=== PATIENT | female | born 1950 | race Caucasian/White ===

== ENCOUNTER → 2019-12-06 13:14 | Outpatient (CLI) | payer MEDICARE, SELFPAY ==
--- NOTE | ~2019-12-06 | MM_ITS ---
EXAMINATION: MM screening [facility] BI w anette HISTORY: Screening TECHNIQUE: Craniocaudal and mediolateral oblique 3-D tomosynthesis images were obtained and synthetic 2-D images were generated. CAD analysis was submitted and interpreted. COMPARISON: Comparison to multiple prior studies sequentially, with oldest reviewed study dated 07/2011. BREAST PARENCHYMAL COMPOSITION: The breasts are heterogeneously dense, which may obscure small masses . FINDINGS: There is no evidence of suspicious mass, calcification, or architectural distortion to sugg est malignancy in either breast. There has been no suspicious interval change. IMPRESSION: 1. No mammographic evidence of malignancy. 2. Recommend routine screening mammography in one year. BI-RADS Category 1: Negative Reviewed, dictated and finalized at location A.
== END ==
PROVIDERS: Visit Provider Nurse Practitioner
DX: Z12.31 Encounter for screening mammogram for malignant neoplasm of breast (principal)
CPT/HCPCS: 77063; 77067

== ENCOUNTER → 2021-01-21 11:26 | Outpatient (CLI) | payer MEDICARE, SELFPAY ==
--- NOTE | ~2021-01-21 | MM_ITS ---
EXAMINATION: MM screening [facility] BI w anette HISTORY: Screening mammogram TECHNIQUE: Craniocaudal and mediolateral oblique 3-D tomosynthesis images were obtained and synthetic 2-D images were generated. Bilateral rotated lateral CC views.] Digital CAD analysis was submitted a nd interpreted. COMPARISON: 12/06/2019, 09/30/2018, 01/04/2018 bilateral screening mammogram examinations BREAST PARENCHYMAL COMPOSITION: There are scattered areas of fibroglandular density. FINDINGS: There is chronic scarring in the central upper right breast; history of prior benign right breast biopsy for calcifications in 1992. Occasional benign calcifications. There is no evidence of suspicious mass, calcification, or architectural distortion to suggest malig aron in either breast. There has been no suspicious interval change. IMPRESSION: 1. No mammographic evidence of malignancy. 2. Recommend routine screening mammography in one year. BI-RADS Category 2: Benign finding(s). Reviewed, dictated and finalized at location A. CTOR OF DISTANCE LEARNING
== END ==
PROVIDERS: Visit Provider Nurse Practitioner
DX: Z12.31 Encounter for screening mammogram for malignant neoplasm of breast (principal)
CPT/HCPCS: 77063; 77067

== ENCOUNTER 2022-02-10 09:54 | Day surgery (SDC) | payer MEDICARE, SELFPAY ==
[2022-02-05 11:09] VITALS: BMI 26.4
--- NOTE | 2022-02-05 11:35 | SUR.PREOP ---
PRE-OPERATIVE [address] [address] 1. Report to the Surgery Center Waiting Room, the entrance is the first door on the right after passing through the automatic sliding doors, at time 1000____on date_02/10/2022__. OR Time:__1130____ . - You and your visitor will be asked to self-screen and do not enter if you have any COVID symptoms. - Two visitors over, age 16 and older, are allowed.? NO children visitors are allowed at this time. - Masking is based on community transmissions levels in [facility].? When the community transmission level is HIGH, masking will be required.? Signage will be posted indicating if masking is required the day of your procedure.? 2. Patients may have clear liquids (water, carbonated beverages, clear teas, apple juice) until 3 hours prior to surgery with a maximum of 20 ounces. - No food from midnight until time of surgery. - Infants may have breast milk until 4 hours before surgery, formula 6 hours prior to surgery. - Children will be allowed to drink immediately following surgery. If applicable, please bring a bottle or sippy cup to assist with drinking. Juice, water, soda, and popsicles are readily available. For infants on formula, please bring formula the day of surgery. Pacifiers are allowed. 3. Take the following medications with a SIP of water the morning of surgery: 1. n/a 2. 3. Medications to discontinue per physician order: 1. n/a date to discontinue: 4. No make-up, nail tongan, hairspray, perfume, deodorant, or body powder the day of surgery. No jewelry (including any body piercings) or valuables the day of surgery. Please take a shower or bath the night before, or the morning of, surgery with an antibacterial soap. Wear comfortable, loose fitting clothing. Children are encouraged to wear pajamas. - Jewelry must be removed prior to entering the operating room. Rings and piercings that are not removed will be cut off. The center will not accept responsibility for valuables. Please leave all valuables, including medications, at home the day of surgery. 5. When going home after surgery, a licensed food mobile driver must drive you home. NO public transportation without another adult. We recommend someone to stay with you, no alcoholic beverages, driving or important decision making for 24 hours after surgery. For pediatric surgeries, we recommend two adults to accompany a child home. (Only one will be allowed into the building with the patient) 6. If you or anyone in your household have experienced Covid symptoms in the past week, please notify your surgeon or surgery center at phone number below for possible testing. 7. Follow any additional instructions given by your physician. Telephone instructions given to: Adela and asked if any additional questions and then verbalized understanding. Patient advised to call surgeon office or the surgery center at [phone] if any additional questions.
[2022-02-10 10:15] VITALS: BP 132/68; PULSE 77; RESP 18; TEMP 36.9; O2SAT 99; BMI 26.2
[2022-02-10] MEDS: LACTATED RINGERS 1,000 ML 150 ML IV CONT (10:29)
--- NOTE | 2022-02-10 10:59 | WPDANESEPPF ---
Anes - Initial Pre Proc Eval Procedure: Operation Date: 02/10/22 11:30 Proposed Procedures p Esophagogastroduodenoscopy - Raghav Rodriguez MD s Diagnostic Colonoscopy - Raghav Rodriguez MD Date/Time: 02/10/22 10:59 Surgeon: Raghav Rodriguez MD Pre Op Diagnosis: Gerd and Dysphagia and Diarrhea Patient Data Age: 71 Gender: F Height: 1.63 m Weight: 69.4 kg Last Vital Signs Temp 36.9 C 02/10/22 10:15 Pulse 77 02/10/22 10:15 Resp 18 02/10/22 10:15 BP 132/68 02/10/22 10:15 Pulse Ox 99 02/10/22 10:15 O2 Del Method Room Air 02/10/22 10:15 Allergies Allergy/AdvReac Type Severity Reaction Status Date / Time erythromycin base Allergy Mild Unknown Verified 02/10/22 10:16 AMOXICILLIN TRIHYDRATE Allergy Mild GI UPSET Uncoded 02/10/22 10:16 POTASSIUM CLAVULANATE Allergy Mild GI UPSET Uncoded 02/10/22 10:16 Home Medications Medication Instructions Recorded Confirmed Type L.acidoph, paracasei,B. lactis 10 1 cell PO DAILY 12/04/21 02/05/22 History billion cell capsule (Digestive Advantage Advanced Probiotic) cholecalciferol (vitamin D3) 125 125 mcg PO DAILY 12/04/21 02/05/22 History mcg (5,000 unit) tablet estradiol 10 mcg vaginal tablet 10 mcg vaginal 2XW 12/04/21 02/05/22 History (Vagifem) krill oil 350 mg-om-3 90 mg-dha 24 1 cap PO DAILY 12/04/21 02/05/22 History mg-epa 50 mg-phospholipids capsule lansoprazole 30 mg capsule,delayed 30 mg PO DAILY #30 caps 12/04/21 02/05/22 Rx release ropinirole 0.5 mg tablet 0.5 mg PO BID 12/04/21 02/05/22 History rosuvastatin 20 mg tablet 20 mg PO DAILY 12/04/21 02/05/22 History Patient hx anesthesia problems: none Family hx anesthesia problems: none Results Review: All pre-operative results and documents have been reviewed as part of the pre-operative evaluation. COUNTS INCLUDE 234 BEDS AT THE [facility] Past Medical History Medical History Cataract Colon cancer screening Dysphagia SOB (shortness of breath) Surgical History Surgical History H/O breast biopsy History of parathyroid surgery History of tonsillectomy Family History Family History Father Cancer Diabetes mellitus Hypertension Heart disease Mother Depression Sibling Cancer AA (alcohol abuse) Hypertension Heart disease Social History Social History Smoking status: Never smoker Second hand tobacco smoke exposure: No Alcohol intake: current Substance use: never Substance use type: does not use Living arrangements: with family Gender identity (if verbalized by the patient): Female Spiritual care concerns: No Anes - Eval Final PreProcedure Day of Procedure 02/10/22 10:59 Patient weight: overweight Heart: regular rate and rhythm Lungs: clear to auscultation Airway: Mallampati scale class II Neurological: alert and oriented Last oral intake: >/= 8 hours ASA classification: II Emergent: no Anesthetic plan: proceed Anesthesia type and monitoring: general GIVS and standard monitoring Results Review: All pre-operative results and documents have been reviewed as part of the pre-operative evaluation. Informed Consent: The patient's anesthetic plan and its attendant risks and benefits were discussed with the patient/family/POA. Questions were solicited and answers provided to the satisfaction of the patient/family/POA.
--- NOTE | 2022-02-10 11:15 | WPDHPUPDATE1 ---
History and Physical Update Update Date/Time: 02/10/22 11:15 History and Physical has been reviewed, including an updated exam of the patient. There are NO changes in the patient's condition. Risks, benefits, and alternatives have been discussed and questions answered. Patient agrees to proceed with procedure.
[2022-02-10] MEDS: SIMETHICONE ORAL SUSPENSION 20 MG/0.3 ML 30 ML BOTTLE 0.6 ML IRRIGATION (12:15)
[2022-02-10 12:25] VITALS: BP 114/69; PULSE 73; RESP 16; O2SAT 100
[2022-02-10 12:35] VITALS: BP 111/60; PULSE 85; RESP 15; O2SAT 99
--- NOTE | 2022-02-10 12:35 | WPDANESPN ---
Anes - Prog Note Post-Op Date/Time: 02/10/22 12:35 Cardiovascular status: normal Respiratory status: normal Airway patency: baseline Mental status: baseline Post-Op hydration status: normal Vital Signs: Last Vital Signs Temp 36.9 C 02/10/22 10:15 Pulse 73 02/10/22 12:25 Resp 16 02/10/22 12:25 BP 114/69 02/10/22 12:25 Pulse Ox 100 02/10/22 12:25 O2 Del Method Room Air 02/10/22 12:25 Pain Score (VAS): 0/10 Patient Feedback: Patient satisfied with anesthetic care.
[2022-02-10 12:45] VITALS: BP 100/69; PULSE 63; RESP 15
== END 2022-02-10 13:11 | disposition home or self-care (01) ==
PROVIDERS: PCP Family Medicine Sports Medicine; Visit Provider Internal Medicine Gastroenterology
PROC: 0DJ08ZZ Inspection of Upper Intestinal Tract, Via Natural or Artificial Opening Endoscopic (ICD-10-PCS; CPT 43235; principal; 2022-02-10 11:30)
PROC: 0DJD8ZZ Inspection of Lower Intestinal Tract, Via Natural or Artificial Opening Endoscopic (ICD-10-PCS; CPT 45378; 2022-02-10 11:30)
DX: Z12.11 Encounter for screening for malignant neoplasm of colon (principal)
CPT/HCPCS: 45378; 43450; 43239

== ENCOUNTER → 2022-05-19 10:01 | Outpatient (CLI) | payer MEDICARE, SELFPAY ==
--- NOTE | ~2022-05-19 | MM_ITS ---
EXAMINATION: MM screening [facility] BI w anette HISTORY: Screening TECHNIQUE: Craniocaudal and mediolateral oblique 3-D tomosynthesis images were obtained and synthetic 2-D images were generated. CAD analysis was submitted and interpreted. COMPARISON: Comparison to multiple prior studies sequentially, with oldest reviewed study dated 10/2012. BREAST PARENCHYMAL COMPOSITION: The breasts are heterogeneously dense, which may obscure small masses . FINDINGS: Stable architectural distortion in the right breast from previous benign biopsy. Stable eliot ign-appearing right breast calcifications in the upper outer quadrant. There is no evidence of suspic ious mass, calcification, or architectural distortion to suggest malignancy in either breast. There h as been no suspicious interval change. IMPRESSION: 1. No mammographic evidence of malignancy. 2. Recommend routine screening mammography in one year. BI-RADS Category 2: Benign finding(s). Reviewed, dictated and finalized at location A.
--- NOTE | ~2022-05-19 | DEXA_ITS ---
Bone Density Report Name: OCTAVIO ROCKWELL Age: 72 Sex: Female Ethnicity: White Date of : 1950 Indication: osteopenia; height loss; prior fracture;postmenopausal Referring Provider: Yuly*Ida Delatorre Study: Bone densitometry was performed. Exam Date: May 19, 2022 Accession number: [id number] Bone Density: Region BMD T-score Z-score Classification AP Spine (L1-L4) 0.946 -0.9 1.4 Normal Femoral Neck (Left) 0.750 -0.9 1.1 Normal Total Hip (Left) 0.834 -0.9 0.8 Normal Femoral Neck (Right) 0.703 -1.3 0.7 Osteopenia Total Hip (Right) 0.831 -0.9 0.8 Normal Total Hip Mean 0.833 -0.9 0.8 Normal World Health Organization criteria for BMD impression classify patients as: Normal (T-score at or above -1.0), Osteopenia (T-score between -1.0 and -2.5), or Osteoporosis (T-score at or below -2.5). 10-year Fracture Risk(1): Major Osteoporotic Fracture 16% Hip Fracture 2.4% Reported Risk Factors: [place] (), Neck BMD=0.703, BMI=26.4, previous fracture (1) FRAX(R) Version 3.08. Fracture probability calculated for an untreated patient. Fracture probability may be lower if the patient has received treatment. Previous Exams: Region Exam Age BMD T-score BMD Change BMD Change Date g/cm2 vs Baseline vs Previous AP Spine(L1-L4) 05/19/2022 72 0.946 -0.9 -0.053 0.028* 09/30/2018 68 0.918 -1.2 -0.081 0.032* 05/09/2016 66 0.886 -1.5 -0.113 0.018 07/01/2012 62 0.869 -1.6 -0.130 0.003 04/05/2010 60 0.865 -1.7 -0.134 -0.053* 03/15/2008 57 0.918 -1.2 -0.081 0.058* 11/07/2005 55 0.861 -1.7 -0.138 -0.138 08/29/2002 52 0.999 -0.4 Total Hip(Left) 05/19/2022 72 0.834 -0.9 -0.056 0.006 09/30/2018 68 0.827 -0.9 -0.063 -0.024 05/09/2016 66 0.851 -0.7 -0.039 0.035* 07/01/2012 62 0.816 -1.0 -0.074 -0.012 04/05/2010 60 0.828 -0.9 -0.062 -0.032* 03/15/2008 57 0.860 -0.7 -0.030 0.009 11/07/2005 55 0.851 -0.7 -0.039 -0.039 08/29/2002 52 0.890 -0.4 Total Hip(Right) 05/19/2022 72 0.831 -0.9 -0.055 -0.021 09/30/2018 68 0.852 -0.7 -0.033 0.002 05/09/2016 66 0.850 -0.8 -0.036 0.020 07/01/2012 62 0.830 -0.9 -0.055 0.003 04/05/2010 60 0.828 -0.9 -0.058 -0.061* 03/15/2008 57 0.888 -0.4 0.002 0.020 10/24
== END ==
PROVIDERS: PCP Family Medicine Sports Medicine; Visit Provider Nurse Practitioner
DX: Z12.31 Encounter for screening mammogram for malignant neoplasm of breast (principal); Z78.0 Asymptomatic menopausal state; M85.851 Other specified disorders of bone density and structure, right thigh
CPT/HCPCS: 77063; 77067; 77080

== ENCOUNTER 2023-06-10 15:17 | Outpatient (CLI) | payer MEDICARE, SELFPAY ==
--- NOTE | ~2023-06-10 | MM_ITS ---
EXAMINATION: MM screening [facility] BI w anette HISTORY: Screening TECHNIQUE: Craniocaudal and mediolateral oblique 3-D tomosynthesis images were obtained and synthetic 2-D images were generated. CAD analysis was submitted and interpreted. COMPARISON: Comparison to multiple prior studies sequentially, with oldest reviewed study dated 09/03. BREAST PARENCHYMAL COMPOSITION: There are scattered areas of fibroglandular density. FINDINGS: There is no evidence of suspicious mass, calcification, or architectural distortion to sugg est malignancy in either breast. There has been no suspicious interval change. IMPRESSION: 1. No mammographic evidence of malignancy. 2. Recommend routine screening mammography in one year. BI-RADS Category 1: Negative Reviewed, dictated and finalized at location B.
== END 2023-06-10 15:18 ==
LOC: MICIMG 15:17
PROVIDERS: PCP Nurse Practitioner; Visit Provider Nurse Practitioner
DX: Z12.31 Encounter for screening mammogram for malignant neoplasm of breast (principal)
CPT/HCPCS: 77063; 77067

== ENCOUNTER 2024-07-27 13:05 | Outpatient (CLI) | payer MEDICARE, SELFPAY ==
--- OUTSIDE RECORDS SUMMARY | 2024-07-27 13:11 | XMS_ITS | Referral Summary ---
Author Organization [facility] [address] [facility] [place] [address] Care Team Providers Care Education Trainer Name Role Phone Raghav Rodriguez MD Unavailable [phone] Debra Emery NP Unavailable Kelly Mendez MD Unavailable Vineet Madrid MD Unavailable [phone] Avinash Chao MD Primary Care Provider [phone] Encounters Date Type Department Care Team Description 07/26/2024 10:45 AM CDT Office Visit [facility] Sleep Medicine at [address] [place] [id number] Kelly Mendez MD Restless leg syndrome (Primary Dx); JANEL (obstructive sleep apnea); Hypersomnia; Iron deficiency 05/23/2024 Telephone [facility] Accountable Care Organization [address] [place] [id number] Rosalind Anderson MA Unsuccessful Phone Call 1 ([employer] AW[employer]) from Last 3 Months Allergies Active Allergy Reactions Criticality Noted Date Comments Erythromycin Nausea & Vomiting,Stomach upset Low Medications lansoprazole (PREVACID) 30 mg capsule Take 1 capsule (30 mg total) by mouth daily 2 Active cholecalciferol (VITAMIN D-3) 5,000 unit capsule Take 1 capsule (5,000 Units total) by mouth daily Active krill oil 500 mg capsule Take 1 capsule by mouth daily Active Lactobacillus acidophilus 10 billion cell capsule Take 1 capsule by mouth daily Active ferrous sulfate 325 mg (65 mg of elemental iron) tabletIndication s:Iron Deficiency Anemia Take 1 tablet (325 mg total) by mouth daily with breakfast Active tretinoin (RETIN-A) 0.05 % cream Apply 0.5 application topically nightly 3 Active rOPINIRole (REQUIP) 1 mg tabletIndication s:Restless leg syndrome Take 1 tablet (1 mg total) by mouth nightly as needed (restless leg syndrom) 90 tablet 1 3 Active estradioL (ESTRACE) 0.01 % (0.1 mg/gram) vaginal cream 4 Active tiZANidine (ZANAFLEX) 2 mg tabletIndication s:Cervical radiculopathy,Ar m paresthesia, right Take 1 tablet (2 mg total) by mouth every 8 (eight) hours as needed for muscle spasms 30 tablet 4 Active rosuvastatin (CRESTOR) 20 mg tablet TAKE 1 TABLET BY MOUTH EVERY DAY 90 tablet 3 4 Active famotidine (PEPCID) 20 mg tablet Take 1 tablet (20 mg total) by mouth nightly 4 Active Mounjaro 5 mg/0.5 mL pen injector injection Inject 0.5 mL (5 mg total) under the skin once a week 5 Active Active Problems Problem Noted Date Diagnosed Date JANEL (obstructive sleep apnea) 02/18/2022 Pulmonary hypertension 01/21/2022 Family history of premature CAD 11/21/2021 Palpitations 11/21/2021 High cholesterol 09/17/2021 Prediabetes 09/17/2021 Vitamin D deficiency 09/17/2021 Restless leg 09/17/2021 Gastroesophageal reflux disease without esophagi tis 09/17/2021 History of hyperparathyroidism 12/08/2014 Overview (09/17/2021): S/p parathyroidectomy Resolved Problems Problem Noted Date Diagnosed Date Resolved Date BARRERA (dyspnea on exertion) 11/21/2021 Chest pressure 11/21/2021 01/21/2022 Positive cardiac stress test 11/12/2021 01/21/2022 Immunizations Immunization Administration Dates Next Due Influenza, Quad, Adjuvantate d, Intramuscular 11/28/2019 Influenza, Quadrivalent, Hig h Dose, Preservative Free, Intrr 12/02/2022,11/29/2021,10/08/2020 Influenza, Unspecified 12/02/2022 Pfizer SARS-CoV-2 Monovalent Vaccination (12+ Yrs) PURPLE 12/02/2020,04/23/2020,03/31/2020 Pfizer Sars-Cov-2 Bivalent V accination (12+ YRS) 12/02/2022 Pneumococcal Conjugate PCV 13 12/01/2019 RSV, Bivalent, Protein Subun it Rsvpref, Diluent (Abrysvo) 12/11/2022 ZOSTER Recombinant 02/21/2019 Social History Tobacco Use Types Packs/Day Years Used Date Smoking Tobacco: Former Cigarettes 0.5 2 0 06/12/1970 - 07/23/1971 Smokeless Tobacco: Never Tobacco Cessation:Counseling Given: Not Answered Comments:Smoked for a few years in college. Quit upon leaving and never used again AUDIT-C Answer Date Recorded Q1: How often do you have a drink containing alc ohol? 2-3 times a week 08/19/2022 Q2: How many drinks containi ng alcohol do you have on a typical day when you are drinking? 1 or 2 08/19/2022 Q3: How often do you have si x or more drinks on one occasion? 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 Gender Identity Not on file Sexual Orientation Not on file Last Filed Vital Signs Vital Sign Reading Time Taken Comments Blood Pressure 111/65 07/26/2024 10:54 AM CDT Pulse 61 07/26/2024 10:54 AM CDT Temperature 37.1 C (98.8 F) 06/01/2023 9:48 AM CDT Respiratory Rate 16 06/01/2023 9:48 AM CDT Oxygen Saturation 98% 07/26/2024 10:54 AM CDT Inhaled Oxygen Concentration - - Weight 65.3 kg (144 lb) 07/26/2024 10:54 AM CDT Height 162.6 cm (5' 4) 07/26/2024 10:54 AM CDT Body Mass Index 24.72 07/26/2024 10:54 AM CDT Plan of Treatment Not on file Medical Devices Implanted Type Area Workers Compensation Coordinator Device Identifier Shelf Expiration Date Model / Serial / Lot Table8 Angio-Seal Vip 6fr Closere Device [id number] - [id number] Implanted:Qty: 1 on 12/10/2021 by Manny Washington MD at [facility] Table8 09/22/2022 [id number] / / [id number] Procedures Procedure Name Priority Date/Time Associated Diagnosis Comments DEXA SCAN Routine 05/19/2022 MAMMOGRAPHY Routine 05/19/2022 COLONOSCOPY Routine 02/10/2022 HEPATITIS C SCREENING Routine 06/07/2018 from Last 3 Months or Most Recently Relevant to Health Maintenance Results * DEXA SCAN (05/19/2022) [facility] Provider HEALTH MAINTENANCE Final Result * MAMMOGRAPHY (05/19/2022) [facility] Provider HEALTH MAINTENANCE Final Result * COLONOSCOPY (02/10/2022) [facility] Provider HEALTH MAINTENANCE Final Result * HEPATITIS C SCREENING (06/07/2018) SCRIBED HCV ab nob-reacti ve Comment:records from prior P CP 06/07/2018 [facility] Provider HEALTH MAINTENANCE Final Result from Last 3 Months or Most Recently Relevant to Health Maintenance Insurance [employer] MEDICARE UHC MEDICARE ADVANTAGE [employer] MEDICARE Advance Directives For more information, please contact: [phone] * Full Code (Latest Code Status on File) Date Activated Date Inactivated Comments 12/10/2021 11:01 AM 12/10/2021 5:15 PM Care Teams Education Trainer Relationship Specialty Start Date End Date Avinash Chao MD [address] [place] [place] [address] PCP - General Family Medicine 09/17/23 Raghav Rodriguez MD [address] [facility] [address] [place] [address] Referring Physician Gastroenterology 08/19/22 Debra Emery, MEDICAL RECORDS AUDITOR [address] [facility] [address] [place] [address] Nurse Practitioner Nurse Practitioner 08/19/22 Kelly Mendez MD [address] [place] [address] [address] [place] [id number] Consulting Physician Sleep Medicine 08/19/22 Vineet Madrid MD [address] [address] Consulting Physician Cardiology 08/19/22
--- OUTSIDE RECORDS SUMMARY | 2024-07-27 13:11 | XMS_ITS | Clinical Summary ---
Author Organization [facility] Address [address] [place] [address] Phone Care Team Providers Care Tanning Salon Attendant Name Role Phone Avinash Chao MD Primary Care Provider [phone] Allergies Active Allergy Reactions Criticality Noted Date Comments Amoxicillin-Pot Clavulanate Nausea and Vomiting Low 05/10/2012 Erythromycin Nausea and Vomiting, Other (See Comments) Low 05/26/2015 Medications ERGOCALCIFEROL, VITAMIN D2, (VITAMIN D ORAL) Take by mouth. Activ e Sodium,Potassiu m,&Mag Sulfates (SUPREP) 17.5-3.13-1.6 gram Oral SolR Take 2 Bottles by mouth see administration instructions. DO NOT FOLLOW INSTR ON BOX, FOLLOW INSTR GIVEN BY DR'S OFFICE 354 mL 0 07/06/19 13 Active Sodium,Potassiu m,&Mag Sulfates (SUPREP) 17.5-3.13-1.6 gram Oral SolR Take 2 Bottles by mouth see administration instructions. DO NOT FOLLOW INSTR ON BOX, FOLLOW INSTR GIVEN BY DR'S OFFICE 354 mL 0 08/05/19 13 Active lansoprazole (PREVACID) 30 mg Capsule, Delayed Release(E.C.) Take 30 mg by mouth daily. Active Lactobacillus acidophilus 10 billion cell Capsule Take 1 Capsule by mouth daily. Active famotidine (PEPCID) 20 mg tablet Take 20 mg by mouth daily at bedtime. Active cholecalciferol , Vitamin D3, 125 mcg (5,000 unit) Capsule Take 5,000 Units by mouth daily. Active ferrous sulfate 325 mg (65 mg iron) tablet Take 325 mg by mouth daily with breakfast. Active krill oil 500 mg Capsule Take 1 Capsule by mouth daily. Active melatonin 10 mg Tablet Take 10 mg by mouth daily. Active rosuvastatin (CRESTOR) 20 mg tablet Take 1 Tablet by mouth daily. 08/14/19 24 Active rOPINIRole (REQUIP) 1 mg tablet Take 1 mg by mouth 3 times daily. 02/19/20 23 Active tiZANidine (ZANAFLEX) 2 mg Tablet Take 2 mg by mouth every 8 hours. 06/01/19 24 Active tretinoin (RETIN-A) 0.05 % Cream Apply 0.5 Applications to affected area daily at bedtime. 05/21/19 23 Active Active Problems Problem Noted Date Diagnosed Date JANEL (obstructive sleep apnea) 02/18/2022 Pulmonary hypertension 01/21/2022 Palpitations 11/21/2021 Family history of premature CAD 11/21/2021 Prediabetes 09/17/2021 Vitamin D deficiency 09/17/2021 Restless leg 09/17/2021 High cholesterol 09/17/2021 Gastroesophageal reflux disease without esophagi tis 09/17/2021 History of hyperparathyroidism 12/08/2014 Overview (11/10/2023): S/p parathyroidectomy Resolved Problems Problem Noted Date Diagnosed Date Resolved Date Anal skin tag 07/05/2012 11/10/2023 Anal itch 05/10/2012 11/10/2023 Encounters Date Type Department Care Team Description 07/13/2024 External Device Data STL ABSTRACTION Provider, Abstract 07/12/2024 External Device Data ST[facility] ABSTRACTION Provider, Abstract 05/11/2024 External Device Data ST[facility] ABSTRACTION Provider, Abstract 04/30/2024 External Device Data [facility] ABSTRACTION Provider, Abstract 04/29/2024 External Device Data STL ABSTRACTION Provider, Abstract 04/27/2024 External Device Data STL ABSTRACTION Provider, Abstract from Last 3 Months Family History Medical History Relation Name Comments Hypertension Brother Kun Eli Diabetes Father Reinaldo Eli Heart Disease Father Reinaldo Eli Hypertension Father Reinaldo Eli Stroke Maternal Grandmother Uzma Ferrell Cataract Mother Chrystal Eli Breast Cancer Paternal Grandmother Colon Cancer Neg Hx Ovarian Cancer Neg Hx Relation Name Status Comments Brother Kun Eli Father Reinaldo Eli Maternal Grandmother Uzma Ferrell Mother Chrystal Eli Paternal Grandmother Social History Tobacco Use Types Packs/Day Years Used Date Smoking Tobacco: Former Cigarettes 1 1 Q uit: 03/03/1971 Tobacco Cessation:Counseling Given: Not Answered Alcohol Use Standard Drinks/Week Comments Not Asked 0 (1 standard drink = 0.6 oz pur e alcohol) Comments Unknown Sex and Gender Information Value Date Recorded Sex Assigned at Female 11/09/2023 10:09 PM CDT 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 Gender Identity Female 11/09/2023 10:09 PM CDT Sexual Orientation Straight 11/09/2023 10 :09 PM CDT Occupation Industry Job Start Date Job End Date Not on file Not on file Not on file Not on file Last Filed Vital Signs Vital Sign Reading Time Taken Comments Blood Pressure 117/69 08/20/2012 1:23 PM CDT Pulse 78 08/20/2012 1:23 PM CDT Temperature - - Respiratory Rate 16 08/20/2012 1:23 PM CDT Oxygen Saturation - - Inhaled Oxygen Concentration - - Weight 62.6 kg (138 lb) 08/20/2012 1:23 PM CDT Height 165.1 cm (5' 5) 08/20/2012 1:23 PM CDT Body Mass Index 22.96 08/20/2012 1:23 PM CDT Plan of Treatment Health Maintenance Due Date Last Done Comments DTAP/TDAP/TD VACCINES (1 - Tdap) 1968 COLORECTAL SCREENING 1994 Colorectal Cancer Screening 1994 FIT-DNA Q 3 years 1994 FIT/FOBT Q 1 year 1994 Flex Sig/CT Colonography Q 5 years 1994 OSTEOPOROSIS SCREENING 2014 ZOSTER VACCINE (2 of 2) 04/18/2019 02/21/2019 PNEUMOCOCCAL VACCINE 50+ YEA RS (2 of 2 - PPSV23) 11/30/2020 12/01/2019 INFLUENZA VACCINE (#1) 2023 , 11/29/2021, 10/08/2020, Additional history exists COVID-19 Vaccine (5 - 2023-2 5 season) 2023 12/02/2022, 12/02/2020, 04/23/2020, Additional history exists RSV VACCINE (60+ or ) (1 - 1-dose 75+ series) 2024 Insurance [employer] PPO MCR Care Teams Tanning Salon Attendant Relationship Specialty Start Date End Date Avinash Chao MD [address] [place] [address] PCP - General Family Practice 05/10/12
--- OUTSIDE RECORDS SUMMARY | 2024-07-27 13:11 | XMS_ITS | Clinical Summary ---
Author Organization [facility] [place] [address] [facility] [place] [address] Care Team Providers Care Inner Layer Scrubber Tender Name Role Phone Raghav Rodriguez MD Unavailable [phone] Debra Emery NP Unavailable Kelly Mendez MD Unavailable Vineet Madrid MD Unavailable [phone] Avinash Chao MD Primary Care Provider [phone] Allergies Active Allergy Reactions Criticality Noted Date [...] 01/21/2022 Positive cardiac stress test 11/12/2021 01/21/2022 Encounters Date Type Department Care Team Description 07/26/2024 10:45 AM CDT Office Visit [facility] Sleep Medicine at [address] [place] [id number] Kelly Mendez MD Restless leg syndrome (Primary Dx); JANEL (obstructive sleep apnea); Hypersomnia; Iron deficiency 05/23/2024 Telephone [facility] Organization [address] [place] [id number] Rosalind Anderson MA Unsuccessful Phone Call 1 ([employer] AWV) from Last 3 Months Immunizations Immunization Administration Dates Next Due Influenza, Quad, Adjuvantate d, Intramuscular 11/28/2019 Influenza, Quadrivalent, Hig h Dose, Preservative Free, Intrr 12/02/2022,11/29/2021,10/08/2020 Influenza, Unspecified 12/02/2022 Pfizer SARS-CoV-2 Monovalent Vaccination (12+ Yrs) PURPLE 12/02/2020,04/23/2020,03/31/2020 Pfizer Sars-Cov-2 Bivalent V accination (12+ YRS) 12/02/2022 Pneumococcal Conjugate PCV 13 12/01/2019 RSV, Bivalent, Protein Subun it Rsvpref, Diluent (Abrysvo) 12/11/2022 ZOSTER Recombinant 02/21/2019 Surgical History Surgery Date Site/Laterality Comments PARATHYROIDECTOMY TONSILLECTOMY CATARACT EXTRACTION Bilateral BREAST BIOPSY Right benign COSMETIC SURGERY 1992 Medical History Medical History Date Comments Hyperparathyroidism s/p parathyr oidectomy High cholesterol GERD (gastroesophageal reflux disease) Restless legs Prediabetes Motion sickness Shortness of breath Abnormal stress test Palpitations Anemia Anxiety [place] (hard of hearing) Arthritis 2018 JANEL (obstructive sleep apnea) 02/18/2022 Cataract 02/12 Family History Medical History Relation Name Comments Atrial fibrillation Brother 1 Nicholas Eli broth er Bipolar disorder Brother 1 Nicholas Eli brother Coronary artery disease Brother 1 Nicholas Alcira b rother Diabetes Brother 1 Nicholas Eli brother Atrial fibrillation Brother 2 Coronary artery disease Brother 2 Diabetes Brother 3 Jose R Kijean pierreey Heart attack Brother 3 Jose R Kibbey Heart disease Brother 3 Jose R [place] Heart attack Brother 4 Nicholas Eli Heart disease Brother 4 Nicholas Eli Diabetes Father Reinaldo Eli Hearing loss Father Reinaldo Eli Heart disease Father Reinaldo Eli Hyperlipidemia Father Reinaldo Eli Hypertension Father Reinaldo Eli Vision loss Father Reinaldo Eli Arthritis Maternal Grandmother Uzma Ferrell Breast cancer Maternal Grandmother Uzma Ferrell Stroke Maternal Grandmother Uzma Ferrell Alzheimer's disease Mother Chrystal Eli Arthritis Mother Chrystal Eli Dementia Mother Chrystal Eli Hearing loss Mother Chrystal Eli Memory loss Mother Chrystal Eli Coronary artery disease Paternal Grandfather Colon cancer Neg Hx Relation Name Status Comments Brother 1 Nicholas Eli brother Alive Brother 2 Alive Brother 3 Jose R Cesarjean pierreey Brother 4 Nicholas Eli Father Reinaldo Eli Maternal Grandmother Uzma Ferrell Mother Chrystal Eli Paternal Grandfather Social History Tobacco Use Types Packs/Day Years [...] on file 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 Gender Identity Not on file Sexual Orientation Not on file Obstetrics History Last Filed Vital Signs Vital Sign Reading [...] 07/26/2024 10:54 AM CDT Plan of Treatment Health Maintenance Due Date Last Done Comments DTaP/Tdap/Td Vaccine (1 - Tdap) 1960 Hepatitis B Screening 1967 Zoster Vaccine (2 of 2) 04/18/2019 02/21/2019 Pneumococcal vaccine 65+ (2 of 2 - PPSV23) 11/30/2020 12/01/2019 Well Visit 65+ 08/20/2023 08/19/2022 Covid-19 Vaccine (6 - 4- 5 season) 2023 12/02/2022, 12/02/2022, 11/19/2021, Additional history exists Osteoporosis Screening-Bone Density Scan 05/19/2024 05/19/2022 Depression Screening 05/31/2024 06/01/2023, 08/19/2022, 09/17/2021 Fall Risk Assessment 05/31/2024 06/01/2023, 08/19/2022, 12/10/2021, Additional history exists Influenza Vaccine (Season Ended) 2024 12/02/2022, 12/02/2022, 11/29/2021, Additional history exists Colon Cancer Screening-Colonoscopy 02/11/2032 02/10/2022, 02/10/2022 Hepatitis C Screening Completed 06/07/2018 Colon Cancer Screening-DNA Stool Discontinued 02/11/20 22, 06/28/2019 Breast Cancer Screening-Mammogram Discontinued 023, 01/21/2021 Medical Devices Implanted Type Area Front Desk Agent Device Identifier Shelf Expiration Date Model / Serial / Lot [employer] Angio-Seal Vip 6fr Closere Device [id number] - [id number] Implanted:Qty: 1 on 12/10/2021 by Manny Washington MD at [facility] [employer] 09/22/2022 [id number] / / [id number] Procedures Procedure Name Priority Date/Time Associated Diagnosis Comments DEXA SCAN Routine 05/19/2022 MAMMOGRAPHY Routine 05/19/2022 HM COLONOSCOPY Routine 02/10/2022 HEPATITIS C SCREENING Routine 06/07/2018 from Last 3 Months or Most Recently Relevant to Health Maintenance Results * DEXA SCAN (05/19/2022) us Historical Provider HEALTH MAINTENANCE Final Result * MAMMOGRAPHY (05/19/2022) us Historical Provider HEALTH MAINTENANCE Final Result * COLONOSCOPY (02/10/2022) us Historical Provider HEALTH MAINTENANCE Final Result * HEPATITIS C SCREENING (06/07/2018) SCRIBED HCV ab nob-reacti ve Comment:records from prior P CP 06/07/2018 Historical Provider HEALTH MAINTENANCE Final Result from Last 3 Months or Most Recently Relevant to Health Maintenance Insurance AETNA MEDICARE UHC MEDICARE ADVANTAGE [facility] MED[facility] Address: [address] [address] [place] [address] A[employer] MEDICARE Advance Directives For more information, please contact: [phone] * Full Code (Latest Code Status on File) Date Activated Date Inactivated Comments 12/10/2021 11:01 AM 12/10/2021 5:15 PM Care Teams Inner Layer Scrubber Tender Relationship Specialty Start Date End Date Avinash Chao MD [address] [place] [address] PCP - General Family Medicine 09/17/23 Raghav Rodriguez MD [address] [facility] [address] [place], [place] [id number] Referring Physician Gastroenterology 08/19/22 Debra Emery, SALESFORCE DEVELOPER [address] [place] [address] Nurse Practitioner Nurse Practitioner 08/19/22 Kelly Mendez MD [address] [place] [address] [address] [place] [address] Consulting Physician Sleep Medicine 08/19/22 Vineet Madrid MD [address] [facility] [address] [place] [address] Consulting Physician Cardiology 08/19/22
--- OUTSIDE RECORDS SUMMARY | 2024-07-27 13:11 | XMS_ITS | Encounter Summary ---
Author Organization [facility] Healthcare Address [address] [place] [address] Care Team Providers Care Foot Piece Assembler Name Role Phone Raghav Rodriguez MD Unavailable [phone] Debra Emery NP Unavailable Kelly Mendez MD Unavailable Vineet Madrid MD Unavailable [phone] Avinash Chao MD Primary Care Provider Reason for Visit * Consultation (Routine) - Authorized Specialty Diagnoses / Procedures Referred By Contkapil t Referred To Contact Sleep Medicine Diagnoses JANEL (obstructive sleep apnea) Avinash Chao MD [address] [place] [address] [place] [address] Phone: tel: fax: Kelly Mendez MD [address] [place] [address] [address] [place] [id number] Phone: tel: Referral ID Status Reason Start Date Expiration Date Visits Requested Visits Authorized [id number] Authorized Specialty Services Required 07/22/2024 08/21/2025 4 4 Encounter Details Date Type Department Care Team (Late st Contact Info) Description 07/26/2024 10:45 AM CDT Office Visit [facility] Sleep Medicine at [address] [place] [id number] Kelly Mendez MD [address] [place] [address] [address] [place] [id number] Restless leg syndrome (Primary Dx); JANEL (obstructive sleep apnea); Hypersomnia; Iron deficiency Social History Tobacco Use Types Packs/Day Years [...] on file 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 Gender Identity Not on file Sexual Orientation Not on file documented as of this encounter Last Filed Vital Signs Vital Sign Reading Time Taken Comments Blood Pressure 111/65 07/26/2024 10:54 AM CDT Pulse 61 07/26/2024 10:54 AM CDT Temperature - - Respiratory Rate - - Oxygen Saturation 98% 07/26/2024 10:54 AM CDT Inhaled Oxygen Concentration - - Weight 65.3 kg (144 lb) 07/26/2024 10:54 AM CDT Height 162.6 cm (5' 4) 07/26/2024 10:54 AM CDT Body Mass Index 24.72 07/26/2024 10:54 AM CDT documented in this encounter Progress Notes * Kelly Mendez MD - 07/26/2024 10:45 AM CDT Images from the original note were not included. SUBJECTIVE Chief Complaints: Snoring, unrefreshing sleep, excessive daytime sleepiness HPI: Nellie Allison is a 74 y.o. female with past medical history significant for gastroesophageal reflux disease, pulmonary hypertension, prediabetes, hypercholesterolemia was seen in the sleep medicine clinic for follow-up on obstructive sleep apnea. Obstructive sleep apnea: Patient is on auto CPAP. She has been using it every night and keeps it on throughout the night. Noissues with the mask or the machine. She sometimes struggles with moisture on the mask or the hose.Patient has added a hose cover. Patient sleeps better with the device on and also feels well rested. She goes to bed at 10:00 p.m., falls asleep in 10 minutes and wakes up at 7:00 a.m.. Patient wakes up once or twice during the night and denies any waking up due to restless sleep. History: Patient gives history of many years of snoring and unrefreshing sleep. Patient feels sleepy and tired during the day. Denies falling asleep while talking or eating or driving. Denies any motor vehicle accidents or near misses. Patient also complains of morning headaches at times. Denies any witnessed apneas or waking up gasping or choking for air. No sleep study done in the past. Positive family history of obstructive sleep apnea in her brother. Mask: Nasal mask DME: [facility] Restless legs: Symptoms well controlled on ropinirole 0.5 mg-2 tablets that she takes it around 7:00 p.m.. History: Patient gives history of creepy or crawling sensation in her bilateral legs at around 8-9 p.m. whenshe is resting. Patient has been taking 2 tablets of ropinirole 0.5 mg tablets for the past 2-3 years. Patient states the sometimes she takes 3 tablets. Patient states that the symptoms have been well controlled with ropinirole. Patient also takes iron supplement every other day or so, 3 times a week. Sleep schedule: At initial visit: On all days, patient goes to bed at 11:00 p.m., falls asleep in 15-30 minutes and wakes up at 7-8 a.m.. Patient wakes up once to use the restroom and is able to go back to sleep in 15- 30 minutes. Denies any naps. Denies any hypnogogic or hypnopompic hallunications. Denies any sleep paralysis. Denies any cataplexy. Denies any daytime naps. Denies any sleepwalking. Denies any sleeptalking. Denies any nightmares. Denies any motor activities, kicking, acting out dreams, falls, or screaming during sleep. ESS: 14 (At initial presentation 14) Past Medical History: Diagnosis Date Abnormal stress test Anemia Anxiety Arthritis 2019 Cataract 02/12 GERD (gastroesophageal reflux disease) High cholesterol [place] (hard of hearing) Hyperparathyroidism s/p parathyroidectomy Motion sickness JANEL (obstructive sleep apnea) 02/18/2022 Palpitations Prediabetes Restless legs Shortness of breath Past Surgical History: Procedure Laterality Date BREAST BIOPSY Right benign CATARACT EXTRACTION Bilateral COSMETIC SURGERY 1992 PARATHYROIDECTOMY TONSILLECTOMY Current Outpatient Medications: cholecalciferol, 5,000 Units, oral, Daily estradioL, famotidine, 20 mg, oral, Nightly ferrous sulfate, 65 mg of elemental iron, oral, Daily with breakfast krill oil, 1 capsule, oral, Daily Lactobacillus acidophilus, 1 capsule, oral, Daily lansoprazole, 1 capsule, oral, Daily Mounjaro, 5 mg, subcutaneous, Weekly rOPINIRole, 1 mg, oral, Nightly PRN rosuvastatin, TAKE 1 TABLET BY MOUTH EVERY DAY tiZANidine, 2 mg, oral, Q8H PRN tretinoin, 0.5 application (deactivated), topical, Nightly Allergies Allergen Reactions Erythromycin Nausea & Vomiting and Stomach upset Social History Tobacco Use Smoking status: Former Current packs/day: 0.00 Average packs/day: 0.5 packs/day for 2.0 years (1.0 ttl pk-yrs) Types: Cigarettes Start date: 06/12/1970 Quit date: 07/23/1971 Years since quittin.0 Smokeless tobacco: Never Tobacco comments: Smoked for a few years in college. 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 Family History Problem Relation Age of Onset Dementia Mother Alzheimer's disease Mother Arthritis Mother Hearing loss Mother Memory loss Mother Heart disease Father Hyperlipidemia Father Hypertension Father Diabetes Father Hearing loss Father Vision loss Father Coronary artery disease Brother Bipolar disorder Brother Diabetes Brother Atrial fibrillation Brother Coronary artery disease Brother Atrial fibrillation Brother Stroke Maternal Grandmother Breast cancer Maternal Grandmother Arthritis Maternal Grandmother Coronary artery disease Paternal Grandfather Heart attack Brother Heart disease Brother Diabetes Brother Heart attack Brother Heart disease Brother Colon cancer Neg Hx Physical Exam: Vitals: 07/26/24 1054 BP: 111/65 Pulse: 61 SpO2: 98% Weight: 65.3 kg (144 lb) Height: 162.6 cm (5' 4) BMI: Body mass index is 24.72 kg/m??. Wt Readings from Last 6 Encounters: 07/26/24 65.3 kg (144 lb) 01/18/24 69.7 kg (153 lb 9.6 oz) 09/17/23 71.2 kg (157 lb) 07/06/23 70.6 kg (155 lb 9.6 oz) 06/01/23 71 kg (156 lb 9.6 oz) 03/31/23 68.9 kg (152 lb) BMI Readings from Last 6 Encounters: 07/26/24 24.72 kg/m?? 01/18/24 26.35 kg/m?? 09/17/23 26.95 kg/m?? 07/06/23 26.71 kg/m?? 06/01/23 26.88 kg/m?? 03/31/23 26.09 kg/m?? Physical Exam General appearance: Alert, oriented, in no distress. HEENT: Atraumatic, normocephalic. Pupils are equal and reactive to light. Extraocular movement intact. Mallampati-IV. Neck circumference-14 in. Neuro: No focal deficits Psychiatric: Normal mood and affect Polysomnogram results: Home sleep apnea testing from 01/2022: RY at 17.7, supine RY at 27.7, nonsupine RY at 0.0 CPAP titration from 01/2023: Partial alleviation at 7 cm of water, auto CPAP 7- 12 cm of water recommended. Data download: Please see scanned data Ejection fraction: Echo from 11/2021: 65%, RVSP of 39 mmHg Assessment and Plan: Moderate obstructive sleep apnea: Home sleep apnea testing showed moderate obstructive sleep apnea, which was worse during supine sleep. Patient returned the device after using only for few days in the past. Patient was unable to tolerate the device due to claustrophobia. Patient initially thought about inspire therapy, but is no longer interested in it. So titration study was obtained on 01/2022. Currently on auto CPAP at 7-12 cm of water based on titration study. Download reviewed, excellent compliance, days with device usage is 100%, days with usage >= 4 hours is 100%, average usage (days used) is 6 hours 54 minutes, well controlled with residual AHI of 0.7 per hour. Continue auto CPAP at the same settings. The physiology of sleep disordered breathing and its increased association with hypertension, diabetes mellitus type 2, arrhythmias, strokes, heart attacks, heart failure, hypersomnia, obesity, cognitive dysfunction, and mood disorders were discussed. Hypnotics, sedatives, and related medications have the potential of worsening the apnea and should be avoided. Patients with sleep apnea may have significant daytime hypersomnolence. If that is the case, driving or handling heavy machinery should be avoided until the apnea and excessive sleepiness have resolved. Weight loss for ideal body weight range is recommended. Hypersomnia: Likely secondary to sleep fragmentation associated with uncontrolled sleep disordered breathing. Improved with auto CPAP use. No driving if sleepy. History of being overweight: Patient has lost 9 lb since last visit. Restless leg syndrome: Symptoms suggestive of restless leg syndrome. Well controlled on ropinirole 0.5 mg, 2 tablets at around 7:00 p.m.. Will obtain ferritin level. Patient is on iron supplement 3 times a week. Return to clinic in 6 months. Voice recognition software [employer] was used dictate and transcribe this document. Data Collection Technician variances may occur. Despite proofreading, typographical errors may occur. Kelly Mendez MD [facility] Sleep Medicine CC: Avinash Chao MD documented in this encounter Plan of Treatment Scheduled Orders Name Type Priority Associated Diagnoses Orde r Schedule Ferritin Lab Routine Restless leg syndrome Iron deficiency Expected: 07/29/2024, Expires: 07/26/2025 documented as of this encounter Visit Diagnoses Diagnosis Restless leg syndrome- Primary Restless legs syndrome (RLS) JANEL (obstructive sleep apnea) Obstructive sleep apnea (adult) (pediatric) Hypersomnia Hypersomnia, unspecified Iron deficiency Disorders of iron metabolism documented in this encounter Historical Medications * This list may reflect changes made after this encounter. Mounjaro 5 mg/0.5 mL pen injector injection Inject 0.5 mL (5 mg total) under the skin once a week 06/28/2024 added in this encounter Care Teams Foot Piece Assembler Relationship Specialty Start Date End Date Avinash Chao MD [address] [place] [place] [address] PCP - General Family Medicine 09/17/23 Raghav Rodriguez MD [address] [facility] [address] [place] [address] Referring Physician Gastroenterology 08/19/22 Debra Emery, GARMENT SEWER HAND [address] [place] [address] Nurse Practitioner Nurse Practitioner 08/19/22 Kelly Mendez MD [address] [place] [address] [address] [place] [address] Consulting Physician Sleep Medicine 08/19/22 Vineet Madrid MD [address] [address] Consulting Physician Cardiology 08/19/22 documented as of this encounter
--- NOTE | 2024-07-27 13:30 | NEURO_ITS ---
Impression: # Complains of numbness of right hand. ? # Mild right Carpal Tunnel Syndrome. ? # No ulnar neuropathy. ? # Normal needle/EMG exam. Nerve Conduction Studies Anti Sensory Summary Table ?Stim Site NR Peak (ms) P-T Amp (?V) Site1 Site2 Delta-P (ms) Dist (cm) Yong (m/s) Right Median Anti Sensory (2-3nd Digit) Wrist ? 3.8 34.6 Wrist 2-3nd Digit 3.8 14.0 37 Wrist ? 3.8 55.0 Wrist 2-3nd Digit 3.8 14.0 37 Right Radial Anti Sensory (Base 1st Digit) Wrist ? 2.6 14.0 Wrist Base 1st Digit 2.6 0.0 Right Ulnar Anti Sensory (5th Digit) Wrist ? 2.7 25.8 Wrist 5th Digit 2.7 14.0 52 Motor Summary Table ?Stim Site NR Onset (ms) O-P Amp (mV) Site1 Site2 Delta-0 (ms) Dist (cm) Yong (m/s) Right Median Motor (Abd Poll Brev) Wrist ? 3.8 1.9 Elbow Wrist 4.8 28.0 58 Elbow ? 8.6 5.8 Right Ulnar Motor (Abd Dig Minimi) Wrist ? 2.9 6.4 A Elbow Wrist 5.1 27.0 53 A Elbow ? 8.0 5.9 B Elbow Wrist 3.7 20.0 54 B Elbow ? 6.6 5.0 F Wave Studies ?NR F-Lat (ms) L-R F-Lat (ms) Right Median (Mrkrs) (Abd Poll Brev) ? 29.32 Right Ulnar (Mrkrs) (Abd Dig Min) ? 29.30 EMG ?Side Muscle Nerve Root Ins Act Fibs Amp Dur Recrt Comment Right 1stDorInt Ulnar C8-T1 Nml Nml Nml Nml Nml Right Ext Indicis Radial (Post Int) C7-8 Nml Nml Nml Nml Nml Right Ext Digitorum Radial (Post Int) C7-8 Nml Nml Nml Nml Nml Right BrachioRad Radial C5-6 Nml Nml Nml Nml Nml Right PronatorTeres Median C6-7 Nml Nml Nml Nml Nml Right Abd Poll Brev Median C8-T1 Nml Nml Nml Nml Nml Right ABD Dig Min Ulnar C8-T1 Nml Nml Nml Nml Nml Right FlexPolLong Median (Ant Int) C7-8 Nml Nml Nml Nml Nml Right Abd Poll Long Radial (Post Int) C7-8 Nml Nml Nml Nml Nml
== END 2024-07-27 13:06 | disposition home or self-care (01) ==
LOC: ANHNEURO 13:08
PROVIDERS: PCP Family Medicine; Visit Provider Plastic Surgery
DX: G56.01 Carpal tunnel syndrome, right upper limb (principal)
CPT/HCPCS: 95886; 95909

== ENCOUNTER 2024-07-29 12:36 | Outpatient (CLI) | payer MEDICARE, SELFPAY ==
--- NOTE | ~2024-07-29 | MM_ITS ---
EXAMINATION: MM screening [facility] BI w anette HISTORY: Screening TECHNIQUE: Craniocaudal and mediolateral oblique 3-D tomosynthesis images were obtained and synthetic 2-D images were generated. CAD analysis was submitted and interpreted. COMPARISON: Comparison to multiple prior studies sequentially, with oldest reviewed study dated 09/03. BREAST PARENCHYMAL COMPOSITION: Not dense: There are scattered areas of fibroglandular density. FINDINGS: Stable asymmetry upper outer quadrant of the right breast, consistent with previous biopsy site. There is no evidence of suspicious mass, calcification, or architectural distortion to suggest malignancy in either breast. There has been no suspicious interval change. IMPRESSION: 1. No mammographic evidence of malignancy. 2. Recommend routine screening mammography in one year. BI-RADS Category 1: Negative Reviewed, dictated and finalized at location B.
== END 2024-07-29 12:37 | disposition home or self-care (01) ==
LOC: MICIMG 12:36
PROVIDERS: PCP Family Medicine; Visit Provider Obstetrics & Gynecology Gynecology
DX: Z12.31 Encounter for screening mammogram for malignant neoplasm of breast (principal)
CPT/HCPCS: 77063; 77067

== ENCOUNTER 2024-10-06 08:29 | Emergency (ER) | payer MEDICARE, SELFPAY ==
--- NOTE | ~2024-10-06 | XR_ITS ---
XR knee LT 3V 10/06/2024 09:05 INDICATION: Left knee pain after fall PROCEDURE: 3 views left knee COMPARISON: No prior studies for comparison. FINDINGS: Fracture, dislocation or subluxation is not identified. The soft tissues appear within norm al limits. No foreign bodies are identified. IMPRESSION: 1: NO ACUTE BONE OR JOINT ABNORMALITY IDENTIFIED. Reviewed, dictated and finalized at location A.
[2024-10-06 08:41] VITALS: BP 127/64; PULSE 63; RESP 16; TEMP 36.1; O2SAT 100
--- NOTE | 2024-10-06 09:39 | ED_ITS ---
HPI - Extremity Injury (Lower) General Chief Complaint: Extremity Injury, Lower Stated Complaint: L KNEE INJURY Time Seen by Provider: 10/06/24 09:20 Source: patient and RN notes reviewed Mode of arrival: ambulatory Limitations: no limitations History of Present Illness HPI Narrative: 74-year-old female Presents Express Care complaining of injury to left knee. Patient reports last night she was on a stool reached for something when she slipped off the stool and fell landing on her bottom, injuring her left knee. Patient denies hitting her head, loss of consciousness, neck pain, back pain, or any other injuries. Patient's has been taking Tylenol or ibuprofen with some relief. Patient denies any numbness, tingling, dizziness, lightheadedness, vision changes, chest pain, breathing problems. Patient says she is able to bear weight on her left leg but there is some discomfort in her knee. Patient denies significant past medical history. Patient denies being on any blood thinners Related Data Home Medications ?Medication ?Instructions ?Recorded ?Confirmed ?Last Taken ?Type L.acidoph,paracasei,B.animalis 10 1 cell PO DAILY 12/04/21 08/19/24 Unknown History billion cell capsule (Digestive Advantage Advanced Probiotic) cholecalciferol (vitamin D3) 125 125 mcg PO DAILY 12/04/21 08/19/24 Unknown History mcg (5,000 unit) tablet estradiol 10 mcg vaginal tablet 10 mcg vaginal 2XW 12/04/21 08/19/24 Unknown History (Vagifem) krill oil 350 mg-om-3 90 mg-dha 24 1 cap PO DAILY 12/04/21 08/19/24 Unknown His tory mg-epa 50 mg-phospholipids capsule rosuvastatin 20 mg tablet 20 mg PO DAILY 12/04/21 10/06/24 Unknown History Allergies Allergy/AdvReac Type Severity Reaction Status Date / Time amoxicillin (From Augmentin) Allergy Mild Nausea and Verified 10/06/24 08:40 Vomiting clavulanic acid (From Allergy Mild Nausea and Verified 10/06/24 08:40 Augmentin) Vomiting erythromycin base Allergy Mild Nausea and Verified 10/06/24 08:40 Vomiting Review of Systems Review of Systems: CONSTITUTIONAL: Denies fever, chills, or sweats. EYES: Denies visual changes, redness, or discharge. ENT: Denies rhinorrhea, congestion, sore throat, or otalgia. CARDIOVASCULAR: Denies chest pain, palpitations, or edema. RESPIRATORY: Denies cough or dyspnea. GASTROINTESTINAL: Denies abdominal pain, nausea, vomiting, or diarrhea. GENITOURINARY: Denies dysuria or hematuria. SKIN: Denies rash, wound, or itching. MUSCULOSKELETAL: Denies back pain, joint pain, or myalgia. Positive for left knee injury and swelling NEUROLOGIC: Denies headache, numbness, or weakness. PSYCHIATRIC: Denies anxiety or depression. All other systems reviewed are negative, except as documented in HPI. [facility] Past Medical History Medical History Bilateral knee pain PAD (peripheral artery disease) Hemorrhoids Ulnar neuropathy at elbow of right upper extremity Diverticulosis Drug induced constipation Post-menopausal Osteopenia after menopause Menopausal state Irritable bowel syndrome with diarrhea IBS (irritable bowel syndrome) Colon cancer screening SOB (shortness of breath) Dysphagia Cataract Surgical History Surgical History History of tonsillectomy H/O breast biopsy History of parathyroid surgery Family History Family History Father Cancer Diabetes mellitus Hypertension Heart disease Mother Depression Sibling Cancer AA (alcohol abuse) Hypertension Heart disease Social History Social History Smoking status: Never smoker Second hand tobacco smoke exposure: No Alcohol intake: current Substance use: never Substance use type: does not use Do You Feel Safe in your Home?: Yes Lack of Transportation: No Lack of Food: Never True Current Housing: I Have Housing Concerned About Future Housing: No Difficulty Paying Gas/Electric Bills: No Difficulty Paying for Meds: No Currently Unemployed: No Education: Master's Degree or Higher Difficulty w/ Childcare or Family Care: No Living arrangements: with family Occupation/Education: retired Gender identity (if verbalized by the patient): Female Spiritual care concerns: No Comments At the time of my signature, I reviewed and agree with the nursing past medical, surgical, social, and family history. There is no relevant family history pertinent to the patient complaint. Exam Narrative: GENERAL: This is a well-nourished, well-developed adult, in no apparent distress. They are non ill-appearing, nontoxic appearing. HEAD: normocephalic, atraumatic. EYES: Sclera clear/white. Vision is grossly intact. Conjunctiva normal. Extraocular movement intact. EARS: External ears normal Hearing grossly intact. NOSE: External nose normal THROAT: Mucous membranes moist NECK: Neck supple. No cervical point tenderness, crepitus, step-offs. CARDIOVASCULAR: Regular rate and rhythm RESPIRATORY: Respiratory rate normal, respiratory effort nonlabored, no respiratory distress NEURO: awake, alert, and oriented to person, place and time. There were no obvious focal neurologic abnormalities. EXTREMITIES: Left knee: No obvious deformity, injury, bruising, redness. Mild swelling to the left knee. Mild tenderness through full range of motion. Tenderness to palpation to the medial and anterior surface of the knee. Capillary refill less than 3 seconds. Normal sensation. Neurovascular status intact distal injury. No valgus or varus laxity. BACK: Nontender without deformity. No thoracic or lumbar poor tenderness, crepitus, or step-offs. Course Course Emergency Course: Portions of this record may have been created with voice recognition software Level of Care: Express Care Visit Vital Signs Vital signs: Vital Signs Temperature 96.9 F L 10/06/24 08:41 Pulse Rate 63 10/06/24 08:41 Respiratory Rate 16 10/06/24 08:41 Blood Pressure 127/64 10/06/24 08:41 Pulse Oximetry 100 10/06/24 08:41 Temperature 96.9 F L 10/06/24 08:41 Pulse Rate 63 10/06/24 08:41 Respiratory Rate 16 10/06/24 08:41 Blood Pressure 127/64 10/06/24 08:41 Pulse Oximetry 100 10/06/24 08:41 Reviewed MDM - Extremity Injury (Lower) MDM Narrative Medical decision making narrative: X-ray left knee is negative for any fractures or acute findings. Likely patient has a knee sprain. Patient given Inga wrap for compression. Will have patient follow rice therapy. Discussed physical exam findings. Advised supportive measures and signs/symptoms to go to the ER. Pt is appropriate for outpt treatment and f/u. Differential Diagnosis Differential diagnosis: Likely other (Knee sprain, knee fracture, knee contusion) Imaging Data Radiologist's impression: ITS Impressions Knee X-Ray 10/06/24 09:09 IMPRESSION: 1: NO ACUTE BONE OR JOINT ABNORMALITY IDENTIFIED. Critical Care Time Critical Care Time Critical Care Time: No Discharge Plan Discharge Clinical Impression: Injury of knee, left Qualifiers: Encounter type: initial encounter Qualified Code(s): S89.92XA - Unspecified injury of left lower leg, initial encounter Patient Disposition: Home Condition: Stable Instructions: Knee Sprain (ED) Additional Instructions: The x-ray left knee is negative for any fractures or acute findings. Rest and elevate the leg; bear weight as tolerated Apply ice 15-20 minute intervals several times a day Keep it wrapped with INGA or use a knee brace You may take ibuprofen 600 mg to 800 mg every 6-8 hours. Do not exceed more than 800 mg of ibuprofen per dose. Do not exceed more than 3200 mg ibuprofen in a day. You may take up to 1000 mg Tylenol every 6-8 hours. Do not exceed 1000 mg per dose, do exceed more than 4000 mg of Tylenol in a day. Follow up with your primary care provider in 1-2 weeks especially if pain is persisting. Patient Language: Tamazight Prescriptions: No Action Digestive Advantage Advanced 10 billion cell capsule 1 cell PO DAILY [id number] mg capsule 1 cap PO DAILY estradiol [Vagifem] 10 mcg tablet 10 mcg vaginal 2XW cholecalciferol (vitamin D3) 125 mcg (5,000 unit) tablet 125 mcg PO DAILY rosuvastatin 20 mg tablet 20 mg PO DAILY lansoprazole 30 mg capsule,delayed release(DR/EC) See Rx Instructions .ROUTE .COMPLEX Qty: 90 3RF Dose Instruction: TAKE 1 CAPSULE BY MOUTH EVERY DAY Rx Instructions: TAKE 1 CAPSULE BY MOUTH EVERY DAY famotidine 20 mg tablet 40 mg PO QHS 90 Days Qty: 180 3RF trazodone 100 mg tablet 100 mg PO QHS PRN (Reason: insomnia) Qty: 90 0RF ropinirole 0.5 mg tablet See Rx Instructions .ROUTE .COMPLEX Qty: 180 0RF Dose Instruction: TAKE 1 TABLET BY MOUTH TWICE A DAY Rx Instructions: TAKE 1 TABLET BY MOUTH TWICE A DAY (DME) FreeStyle Anika 3 Plus Sensor Device See Rx Instructions .Route Qty: 1 2RF Rx Instructions: As directed Follow-up/Referrals: Avinash Chao MD [Primary Care Provider] - Time of Disposition: 09:38
== END 2024-10-06 09:45 | disposition home or self-care (01) ==
PROVIDERS: PCP Family Medicine
DX: S89.92XA Unspecified injury of left lower leg, initial encounter (principal); W17.89XA Other fall from one level to another, initial encounter; I73.9 Peripheral vascular disease, unspecified
CPT/HCPCS: 73562; 99213; G0463

== ENCOUNTER 2024-10-17 11:58 | Emergency (ER) | payer MEDICARE, SELFPAY ==
--- NOTE | ~2024-10-17 | XR_ITS ---
Clinical history:Pain. Fall 4 days ago. Patellar tenderness EXAM:X-ray knee left minimum 4 views TECHNIQUE:4 views of the left knee were obtained. Comparisons:10/06/2024 FINDINGS: Bones appear osteopenic. Mild narrowing of the medial compartment. Moderate narrowing of the patellofemoral joint. Small suprapatellar effusion. No lateral patellar tilt. Soft tissue swelling about the left knee. IMPRESSION: 1. No fracture. No dislocation. 2. Moderate narrowing of the patellofemoral joint. If symptoms persist or worsen, consider an MRI of the left knee for further assessment Reviewed, dictated and finalized at location Q. IMPRESSION: 1. No fracture. No dislocation. 2. Moderate narrowing of the patellofemoral joint. If symptoms persist or worsen, consider an MRI of the left knee for further ass essment
[2024-10-17 12:05] VITALS: BP 135/57; PULSE 60; RESP 18; TEMP 36.8; O2SAT 98
--- NOTE | 2024-10-17 12:26 | ED.LOWEXIN ---
HPI - Extremity Injury (Lower) General Chief Complaint: Extremity Injury, Lower Stated Complaint: L Knee Pain Source: patient, RN notes reviewed and old records reviewed Mode of arrival: ambulatory Limitations: no limitations History of Present Illness HPI Narrative: 74-year-old female presents to the [facility] with complaints of left knee pain. Patient was seen on 06 October, had knee pain in the medial aspect. Patient states that she fell forward on her left knee on , 4 days ago. Here for evaluation today. Tenderness over the patella Related Data Home Medications ?Medication ?Instructions ?Recorded ?Confirmed ?Last Taken ?Type L.acidoph,paracasei,B.animalis 10 1 cell PO DAILY 12/04/21 10/06/24 Unknown History billion cell capsule (Digestive Advantage Advanced Probiotic) cholecalciferol (vitamin D3) 125 125 mcg PO DAILY 12/04/21 10/06/24 Unknown History mcg (5,000 unit) tablet estradiol 10 mcg vaginal tablet 10 mcg vaginal 2XW 12/04/21 10/06/24 Unknown History (Vagifem) krill oil 350 mg-om-3 90 mg-dha 24 1 cap PO DAILY 12/04/21 10/06/24 Unknown History mg-epa 50 mg-phospholipids capsule rosuvastatin 20 mg tablet 20 mg PO DAILY 12/04/21 10/06/24 Unknown History Allergies Allergy/AdvReac Type Severity Reaction Status Date / Time amoxicillin (From Augmentin) Allergy Mild Nausea and Verified 10/17/24 12:15 Vomiting clavulanic acid (From Allergy Mild Nausea and Verified 10/17/24 12:15 Augmentin) Vomiting erythromycin base Allergy Mild Nausea and Verified 10/17/24 12:15 Vomiting Review of Systems Review of Systems: All systems reviewed & are unremarkable except as noted in HPI and below Constitutional: Constitutional: Reports no additional constitutional complaints Musculoskeletal: Musculoskeletal: Reports as per HPI, Reports arthralgias (Left knee) and Denies joint swelling Integumentary/Breasts: Skin/Breast: Reports system reviewed and no additional complaints, except as docu PMFSH Past Medical History Medical History Bilateral knee pain PAD (peripheral artery disease) Hemorrhoids Ulnar neuropathy at elbow of right upper extremity Diverticulosis Drug induced constipation Post-menopausal Osteopenia after menopause Menopausal state Irritable bowel syndrome with diarrhea IBS (irritable bowel syndrome) Colon cancer screening SOB (shortness of breath) Dysphagia Cataract Surgical History Surgical History History of tonsillectomy H/O breast biopsy History of parathyroid surgery Family History Family History Father Cancer Diabetes mellitus Hypertension Heart disease Mother Depression Sibling Cancer AA (alcohol abuse) Hypertension Heart disease Social History Social History Smoking status: Never smoker Second hand tobacco smoke exposure: No Alcohol intake: current Substance use: never Substance use type: does not use Do You Feel Safe in your Home?: Yes Lack of Transportation: No Lack of Food: Never True Current Housing: I Have Housing Concerned About Future Housing: No Difficulty Paying Gas/Electric Bills: No Difficulty Paying for Meds: No Currently Unemployed: No Education: Master's Degree or Higher Difficulty w/ Childcare or Family Care: No Living arrangements: with family Occupation/Education: retired Gender identity (if verbalized by the patient): Female Spiritual care concerns: No Comments At the time of my signature, I reviewed and agree with the nursing past medical, surgical, social, and family history. There is no relevant family history pertinent to the patient complaint. Exam Const: General: cooperative, healthy appearing, comfortable, no acute distress, well developed, alert and well nourished Nutritional Appearance: well nourished Orientation/consciousness: patient oriented x3 Limitations: no limitations HENMT: Head: normal to inspection Eyes: General: appearance normal, both eyes and all related structures Alignment and Position: alignment normal Neck: Neck: normal visual inspection, full ROM, no lymphadenopathy and no meningeal signs Chest: Chest palpation & inspection: normal inspection of the chest Resp: Effort & Inspection: normal respiratory effort and able to speak in complete sentences Cardio: Rate: regular rate Skin: General skin exam: normal color and no rashes or lesions noted Neuro: General: patient oriented x3, gait normal, moves all extremities and no meningeal signs Cognition (Neuro): normal cognition Speech: normal speech Gait exam (Neuro): Normal gait present Extrem: General: normal to inspection, full ROM, capillary refill normal and normal gait Left lower extremity: knee Details: tenderness and normal ROM; no swelling, no abrasions, no lacerations, no ecchymosis, no crepitus, no foreign bodies and no penetrating wound Psych: Appearance: grossly normal and well kempt Mental Status: mental status grossly normal Speech and movement: Normal speech and movement present and Clear speech present Affect: normal affect Attitude: cooperative Course Course Level of Care: Express Care Visit Vital Signs Vital signs: Vital Signs Temperature 98.3 F 10/17/24 12:05 Pulse Rate 60 10/17/24 12:05 Respiratory Rate 18 10/17/24 12:05 Blood Pressure 135/57 L 10/17/24 12:05 Pulse Oximetry 98 10/17/24 12:05 Oxygen Delivery Room Air 10/17/24 12:05 Temperature 98.3 F 10/17/24 12:05 Pulse Rate 60 10/17/24 12:05 Respiratory Rate 18 10/17/24 12:05 Blood Pressure 135/57 L 10/17/24 12:05 Pulse Oximetry 98 10/17/24 12:05 Oxygen Delivery Room Air 10/17/24 12:05 Reviewed MDM - Extremity Injury (Lower) MDM Narrative Medical decision making narrative: Patient sitting comfortably in exam room. Patient is nontoxic, vitals stable. Patient presents with knee pain Patient's x-ray shows no fracture. Patient appropriate for outpatient treatment and follow-up Discharge instructions reviewed with patient, as well as provided in writing per nursing staff. The instructions also include specific and strict return/GO TO THE ER as well as f/u information. All questions have been answered, and the patient deny any further questions with discharge and discharge plan. Some parts of this dictation were generated by voice recognition software and may contain typographical and/or grammatical inaccuracies. Differential Diagnosis Differential diagnosis: Likely other (Knee contusion, knee fracture, dislocation) Imaging Data Radiologist's impression: XR knee LT 3V 10/06/2024 09:05 INDICATION: Left knee pain after fall PROCEDURE: 3 views left knee COMPARISON: No prior studies for comparison. FINDINGS: Fracture, dislocation or subluxation is not identified. The soft tissues appear within normal limits. No foreign bodies are identified. IMPRESSION: 1: NO ACUTE BONE OR JOINT ABNORMALITY IDENTIFIED. Critical Care Time Critical Care Time Critical Care Time: No Discharge Plan Discharge Clinical Impression: Acute pain of left knee Patient Disposition: Home Condition: Stable Instructions: Knee Pain (ED) Additional Instructions: Follow-up with primary care provider Your x-ray did not show any fractures. Continue wearing a brace Take Motrin alternating with Tylenol per package instructions as needed for pain Patient Language: Macedonian Prescriptions: No Action Digestive Advantage Advanced 10 billion cell capsule 1 cell PO DAILY [id number] mg capsule 1 cap PO DAILY estradiol [Vagifem] 10 mcg tablet 10 mcg vaginal 2XW cholecalciferol (vitamin D3) 125 mcg (5,000 unit) tablet 125 mcg PO DAILY rosuvastatin 20 mg tablet 20 mg PO DAILY lansoprazole 30 mg capsule,delayed release(DR/EC) See Rx Instructions .ROUTE .COMPLEX Qty: 90 3RF Dose Instruction: TAKE 1 CAPSULE BY MOUTH EVERY DAY Rx Instructions: TAKE 1 CAPSULE BY MOUTH EVERY DAY famotidine 20 mg tablet 40 mg PO QHS 90 Days Qty: 180 3RF ropinirole 0.5 mg tablet See Rx Instructions .ROUTE .COMPLEX Qty: 180 0RF Dose Instruction: TAKE 1 TABLET BY MOUTH TWICE A DAY Rx Instructions: TAKE 1 TABLET BY MOUTH TWICE A DAY (DME) FreeStyle Anika 3 Plus Sensor Device See Rx Instructions .Route Qty: 1 2RF Rx Instructions: As directed trazodone 100 mg tablet 100 mg PO QHS PRN (Reason: insomnia) Qty: 90 0RF Follow-up/Referrals: Avinash Chao MD [Primary Care Provider, Family Practice] - 1 Week Clinical Impression: Acute pain of left knee Time of Disposition: 12:53
== END 2024-10-17 13:13 | disposition home or self-care (01) ==
PROVIDERS: Emergency Provider Nurse Practitioner; PCP Family Medicine
DX: M25.562 Pain in left knee (principal); I73.9 Peripheral vascular disease, unspecified
CPT/HCPCS: 73564; 99213; G0463

== ENCOUNTER 2024-10-31 14:30 | Emergency (ER) | payer MEDICARE, SELFPAY ==
--- OUTSIDE RECORDS SUMMARY | 2024-10-31 14:34 | XMS_ITS | Clinical Summary ---
Author Organization [facility] Address [address] [place] [address] Phone Care Team Providers Care Job Checker Name Role Phone Avinash Chao MD Primary Care Provider [phone] Allergies Active Allergy Reactions Criticality Noted Date [...] Encounters Date Type Department Care Team Description 09/07/2024 External Device Data [facility] ABSTRACTION Provider, Abstract 09/07/2024 External Device Data [facility] ABSTRACTION Provider, Abstract 09/07/2024 External Device Data [facility] ABSTRACTION Provider, Abstract 09/06/2024 External Device Data [facility] ABSTRACTION Provider, Abstract 08/10/2024 External Device Data [facility] ABSTRACTION Provider, Abstract 08/09/2024 External Device Data [facility] ABSTRACTION Provider, Abstract [...] PM CDT Legal 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 [address] PCP - General Family Practice 05/10/12
--- OUTSIDE RECORDS SUMMARY | 2024-10-31 14:34 | XMS_ITS | Clinical Summary ---
Author Organization [facility] [place] [address] Address [facility] [place] [address] Care Team Providers Care Sales Route Driver Helper Name Role Phone Raghav Rodriguez MD Unavailable [phone] Debra Emery NP Unavailable Kelly Mendez MD Unavailable Vineet Madrid MD Unavailable [phone] Avinash Chao MD Primary Care Provider Allergies Active Allergy Reactions Criticality Noted Date [...] 325 mg (65 mg of elemental iron) tabletIndicatio ns:Iron Deficiency Anemia Take 1 tablet (325 mg total) by mouth daily with breakfast Active tretinoin (RETIN-A) 0.05 % cream Apply 0.5 application topically nightly 3 Active rOPINIRole (REQUIP) 1 mg tabletIndicatio ns:Restless leg syndrome Take 1 tablet (1 mg total) by mouth nightly as needed (restless leg syndrom) 90 tablet 1 3 Active estradioL (ESTRACE) 0.01 % (0.1 mg/gram) vaginal cream 4 Active tiZANidine (ZANAFLEX) 2 mg tabletIndicatio ns:Cervical radiculopathy,A rm paresthesia, right Take 1 tablet (2 mg [...] under the skin once a week 5 025 Discontin ued(Thera py completed ) Active Problems Problem Noted Date Diagnosed Date [...] Encounters Date Type Department Care Team Description 10/04/2024 11:00 AM CDT Office Visit [facility] Cardiology at [address] [place] [address] Vineet Madrid MD Pulmonary hypertension (HCC) (Primary Dx); Palpitations; High cholesterol; Family history of premature CAD; Prediabetes from Last 3 Months Immunizations Immunization Administration [...] breath Abnormal stress test Palpitations Anemia Anxiety [place] (hard of hearing) Arthritis 2018 JANEL (obstructive sleep apnea) 02/18/2022 Cataract 02/12 Family History Medical History Relation Name Comments Atrial fibrillation Brother 1 Nicholas Eli broth er Bipolar disorder Brother 1 Nicholas Eli brother Coronary artery disease Brother 1 Nicholas Eli b rother Diabetes Brother 1 Nicholas Eli brother Atrial fibrillation Brother 2 Coronary artery disease Brother 2 Diabetes Brother 3 Jose R Kibbey Heart attack Brother 3 Jose R Xieey Heart disease Brother 3 Jose R Cesarbbey Heart attack Brother 4 Nicholas Eli Heart disease Brother 4 Nicholas Eli Diabetes Father Reinaldo Eli Hearing loss Father Reinaldo Eli Heart disease Father Reinaldo Eli Hyperlipidemia Father Reinaldo Eli Hypertension Father Reinaldo Eli Vision loss Father Reinaldo Eli Arthritis Maternal Grandmother Uzma Ferrell Breast cancer Maternal Grandmother Uzma Ghassan Stroke Maternal Grandmother Uzma Ghassan Alzheimer's disease Mother Chrystal Eli Arthritis Mother Chrystal Eli Dementia Mother Chrystal Eli Hearing loss Mother Chrystal Eli Memory loss Mother Chrystal Eli Coronary artery disease Paternal Grandfather Colon cancer Neg Hx Relation Name Status Comments Brother 1 Nicholas Eli brother Alive Brother 2 Alive Brother 3 Jose R Xieey Brother 4 Nicholas Eli Father Reinaldo Eli Maternal Grandmother Uzma Ghassan Mother Chrystal Eli Paternal Grandfather Social History [...] on file Legal Sex Female 6:41 AM [place] Gender Identity Not on file Sexual Orientation Not on file Obstetrics History Last Filed Vital Signs Vital Sign Reading Time Taken Comments Blood Pressure 114/62 10/04/2024 11:08 AM CDT Pulse 66 10/04/2024 11:08 AM CDT Temperature 37.1 C (98.8 F) 06/01/2023 9:48 AM CDT Respiratory Rate 16 06/01/2023 9:48 AM CDT Oxygen Saturation 97% 10/04/2024 11:08 AM CDT Inhaled Oxygen Concentration - - Weight 65.3 kg (144 lb) 10/04/2024 11:08 AM CDT Height 162.6 cm (5' 4) 10/04/2024 11:08 AM CDT Body Mass Index 24.72 10/04/2024 11:08 AM CDT Plan of Treatment Health Maintenance Due Date Last Done Comments DTaP/Tdap/Td Vaccine (1 - Tdap) 1960 Hepatitis B Screening 1967 Zoster Vaccine (2 of 2) 04/18/2019 02/21/2019 Pneumococcal vaccine 65+ (2 of 2 - PCV20 or PCV21) 11/30/2020 12/01/2019 Well Visit 65+ 08/20/2023 08/19/2022 Covid-19 Vaccine (6 - 2023-2 5 season) 2023 12/02/2022, 12/02/2022, 11/19/2021, Additional history exists Osteoporosis Screening-Bone Density Scan 05/19/2024 05/19/2022 Depression Screening 05/31/2024 06/01/2023, 08/19/2022, 09/17/2021 Fall Risk Assessment 05/31/2024 06/01/2023, 08/19/2022, 12/10/2021, Additional history exists Influenza Vaccine (#1) 2024 3, 12/02/2022, 11/29/2021, Additional history exists Colon Cancer Screening-Colonoscopy 02/11/2032 02/10/2022, 02/10/2022 Hepatitis C Screening Completed 06/07/2018 Colon Cancer Screening-DNA Stool Discontinued 02/11/20 22, 06/28/2019 Breast Cancer Screening-Mammogram Discontinued 023, 01/21/2021 Medical Devices Implanted Type Area Superintendent [employer] Device Identifier Shelf Expiration Date Model / Serial / Lot [employer] Angio-Seal Vip 6fr Closere Device [id number] - [id number] Implanted:Qty: 1 on 12/10/2021 by Manny Washington MD at [facility] [employer] 09/22/2022 [id number] / / [id number] Procedures Procedure Name Priority Date/Time Associated Diagnosis Comments POCT LIPID PANEL Routine 10/04/2024 11:0 5 AM CDT High cholesterol DEXA SCAN Routine 05/19/2022 MAMMOGRAPHY Routine 05/19/2022 COLONOSCOPY Routine 02/10/2022 HEPATITIS C SCREENING Routine 06/07/2018 from Last 3 Months or Most Recently Relevant to Health Maintenance Results * (ABNORMAL) POCT lipid panel (10/04/2024 11:05 AM CDT) Cholesterol, POC 131 <200 MG/DL HDL, POC 50 >=40 mg/dL Triglycerides, POC 231(A) <=149 mg/dL LDL Cholesterol POC 35 <=129 mg/dL Chol/HDL Ratio, POC 2.6 NONE Non-HDL Cholesterol, POC 81 NONE mg/dL Cholesterol Total, POC 131 30 - 199 mg/dL Capillary blood 10/04/2024 1 1:05 AM CDT Result [facility] Vineet Madrid MD POINT OF CARE TEST ORDERA BLES Final Result * DEXA SCAN (05/19/2022) Result [facility] Historical Provider HEALTH MAINTENANCE Final Result * MAMMOGRAPHY (05/19/2022) Result [facility] Provider HEALTH MAINTENANCE Final Result * COLONOSCOPY (02/10/2022) Result [facility] Provider HEALTH MAINTENANCE Final Result * HEPATITIS C SCREENING (06/07/2018) SCRIBED HCV ab nob-reacti ve Comment:records from prior P CP 06/07/2018 Result [facility] Provider HEALTH MAINTENANCE Final Result from Last 3 Months or Most Recently Relevant to Health Maintenance Insurance [employer] MEDICARE [facility] MEDICARE ADVANT[facility] Address: [address] [address] [place] [address] [facility] MED[facility] Advance Directives For more information, please contact: [phone] * Full Code (Latest Code Status on File) Date Activated Date Inactivated Comments 12/10/2021 11:01 AM 12/10/2021 5:15 PM Care Teams Sales Route Driver Helper Relationship Specialty Start Date End Date Avinash Chao MD [address] [place] [address] PCP - General Family Medicine 09/17/23 Raghav Rodriguez MD [address] [facility] [address] [place] [address] Referring Physician Gastroenterology 08/19/22 Debra Emery, [employer] [facility] [address] [place], [place] [id number] Nurse Practitioner Nurse Practitioner 08/19/22 Kelly Mendez MD [address] [place] [address] [address] [place] [id number] Consulting Physician Sleep Medicine 08/19/22 Vineet Madrid MD [address] [place] [address] Consulting Physician Cardiology 08/19/22
[2024-10-31 14:35] VITALS: BP 160/71; PULSE 75; RESP 20; TEMP 36.8; O2SAT 98
--- NOTE | 2024-10-31 16:20 | ED.GENADULT ---
HPI - General Adult General Chief complaint: Wound/Laceration Stated complaint: HI Time Seen by Provider: 10/31/24 15:29 History of Present Illness HPI narrative: 74-year-old female presenting to the emergency department for evaluation for a laceration to her left scalp after walking into a branch under a dyer tree while she was mowing the grass. Patient states the branch scraped her head resulting in a laceration that did bleed a lot when it 1st occurred. His tetanus is up-to-date. Bleeding was resolved when patient arrived to the emergency department. Related Data Home Medications ?Medication ?Instructions ?Recorded ?Confirmed ?Last Taken ?Type L.acidoph,paracasei,B.animalis 10 1 cell PO DAILY 12/04/21 10/06/24 Unknown History billion cell capsule (Digestive Advantage Advanced Probiotic) cholecalciferol (vitamin D3) 125 125 mcg PO DAILY 12/04/21 10/06/24 Unknown History mcg (5,000 unit) tablet estradiol 10 mcg vaginal tablet 10 mcg vaginal 2XW 12/04/21 10/06/24 Unknown History (Vagifem) krill oil 350 mg-om-3 90 mg-dha 24 1 cap PO DAILY 12/04/21 10/06/24 Unknown History mg-epa 50 mg-phospholipids capsule rosuvastatin 20 mg tablet 20 mg PO DAILY 12/04/21 10/06/24 Unknown History Allergies Allergy/AdvReac Type Severity Reaction Status Date / Time amoxicillin (From Augmentin) Allergy Mild Nausea and Verified 10/31/24 16:24 Vomiting clavulanic acid (From Allergy Mild Nausea and Verified 10/31/24 16:24 Augmentin) Vomiting erythromycin base Allergy Mild Nausea and Verified 10/31/24 16:24 Vomiting Review of Systems Review of Systems: All systems reviewed & are unremarkable except as noted in HPI and below PMFSH Past Medical History Medical History Bilateral knee pain PAD (peripheral artery disease) Hemorrhoids Ulnar neuropathy at elbow of right upper extremity Diverticulosis Drug induced constipation Post-menopausal Osteopenia after menopause Menopausal state Irritable bowel syndrome with diarrhea IBS (irritable bowel syndrome) Colon cancer screening SOB (shortness of breath) Dysphagia Cataract Surgical History Surgical History History of tonsillectomy H/O breast biopsy History of parathyroid surgery Family History Family History Father Cancer Diabetes mellitus Hypertension Heart disease Mother Depression Sibling Cancer AA (alcohol abuse) Hypertension Heart disease Social History Social History Smoking status: Never smoker Second hand tobacco smoke exposure: No Alcohol intake: current Substance use: never Substance use type: does not use Do You Feel Safe in your Home?: Yes Lack of Transportation: No Lack of Food: Never True Current Housing: I Have Housing Concerned About Future Housing: No Difficulty Paying Gas/Electric Bills: No Difficulty Paying for Meds: No Currently Unemployed: No Education: Master's Degree or Higher Difficulty w/ Childcare or Family Care: No Living arrangements: with family Occupation/Education: retired Gender identity (if verbalized by the patient): Female Spiritual care concerns: No Exam Narrative: APPEARANCE: Well appearing, no pain, no distress, well-nourished. HEAD: normocephalic, atraumatic. EYES: PERRLA/EOMI, conjunctivae clear. NOSE: Normal no drainage EARS:TMS clear with good light reflex. THROAT: Pharynx clear, no exudate. NECK: Supple. No adenopathy, no masses. RESPIRATORY: Airway patent, respirations nonlabored. Clear to auscultation bilaterally, no rales, rhonchi, wheezing. CARDIOVASCULAR: Regular rate and rhythm without murmurs rubs or gallops. ABDOMINAL: Soft, nontender, nondistended, normal bowel sounds MUSCULOSKELETAL: Moves all extremities. Strength/ROM intact, No edema, No calf tenderness. NEURO: Alert. Cranial nerves II through XII intact. Good gait. Good coordination SKIN: Scalp laceration Course Vital Signs Vital signs: Vital Signs Temperature 98.2 F 10/31/24 14:35 Pulse Rate 75 10/31/24 14:35 Respiratory Rate 20 10/31/24 14:35 Blood Pressure 160/71 H 10/31/24 14:35 Pulse Oximetry 98 10/31/24 14:35 Oxygen Delivery Room Air 10/31/24 14:35 Temperature 98.2 F 10/31/24 14:35 Pulse Rate 75 10/31/24 14:35 Respiratory Rate 20 10/31/24 14:35 Blood Pressure 160/71 H 10/31/24 14:35 Pulse Oximetry 98 10/31/24 14:35 Oxygen Delivery Room Air 10/31/24 14:35 Procedures Laceration Laceration 1: Date: 10/31/24 Time: 16:20 Site: scalp Side (If applicable): left Size (cm): 4 Description: linear Depth: simple, single layer Pre-repair: wound explored and irrigated ====== Skin Level ====== Skin layer closed with: crystal Number of sutures: 5 ====== Subcutaneous Layer ====== ====== Muscle Layer ====== ====== Tendon Layer ====== Medical Decision Making MDM Narrative Medical decision making narrative: 74-year-old female presented emergency department for evaluation for a scalp laceration. Laceration was repaired as described in the procedure note. Patient's tetanus is up-to-date. Patient was started on a short course of antibiotics due to the nature of the laceration. Patient was also provided meloxicam for pain control. All questions concerns were addressed patient was comfortable with the plan for discharge and close follow-up. Vital Signs Vital Signs: Vital Signs Temperature 98.2 F 10/31/24 14:35 Pulse Rate 75 10/31/24 14:35 Respiratory Rate 20 10/31/24 14:35 Blood Pressure 160/71 H 10/31/24 14:35 Pulse Oximetry 98 10/31/24 14:35 Oxygen Delivery Room Air 10/31/24 14:35 Temperature 98.2 F 10/31/24 14:35 Pulse Rate 75 10/31/24 14:35 Respiratory Rate 20 10/31/24 14:35 Blood Pressure 160/71 H 10/31/24 14:35 Pulse Oximetry 98 10/31/24 14:35 Oxygen Delivery Room Air 10/31/24 14:35 Discharge Plan Discharge Clinical Impression: Head injury, Laceration of scalp Patient Disposition: Home Condition: Stable Instructions: Antibiotic Form, Laceration (ED) Additional Instructions: Crystal need to be removed in 7-10 days. Antibiotic as directed until completed. Meloxicam as needed for pain control. Have close follow-up with your primary care physician. Patient Language: British Prescriptions: New cephalexin 500 mg capsule 500 mg PO BID 7 Days Qty: 14 0RF meloxicam 7.5 mg tablet 7.5 mg PO DAILY 10 Days Qty: 10 0RF No Action Digestive Advantage Advanced 10 billion cell capsule 1 cell PO DAILY [id number] [id number] mg capsule 1 cap PO DAILY estradiol [Vagifem] 10 mcg tablet 10 mcg vaginal 2XW cholecalciferol (vitamin D3) 125 mcg (5,000 unit) tablet 125 mcg PO DAILY rosuvastatin 20 mg tablet 20 mg PO DAILY famotidine 20 mg tablet 40 mg PO QHS 90 Days Qty: 180 3RF ropinirole 0.5 mg tablet See Rx Instructions .ROUTE .COMPLEX Qty: 180 0RF Dose Instruction: TAKE 1 TABLET BY MOUTH TWICE A DAY Rx Instructions: TAKE 1 TABLET BY MOUTH TWICE A DAY (DME) FreeStyle Anika 3 Plus Sensor Device See Rx Instructions .Route Qty: 1 2RF Rx Instructions: As directed trazodone 100 mg tablet 100 mg PO QHS PRN (Reason: insomnia) Qty: 90 0RF lansoprazole 30 mg capsule,delayed release(DR/EC) See Rx Instructions .ROUTE .COMPLEX Qty: 90 3RF Dose Instruction: TAKE 1 CAPSULE BY MOUTH EVERY DAY Rx Instructions: TAKE 1 CAPSULE BY MOUTH EVERY DAY Ozempic 0.25 mg or 0.5 mg (2 mg/3 mL) pen injector 0.25 mg subcut WEEKLY Qty: 3 0RF Rx Instructions: for 4 weeks Follow-up/Referrals: Avinash Chao MD [Primary Care Provider, Family Practice]
[2024-10-31] MEDS: CEPHALEXIN 500 MG CAPSULE PO (16:43)
--- OUTSIDE RECORDS SUMMARY | 2024-10-31 16:44 | XMS_ITS | Clinical Summary ---
Author Organization [facility] [address] Address [facility] [place] [address] Care Team Providers Care Graphics Coordinator Name Role Phone Raghav Rodriguez MD Unavailable [phone] Debra Emery NP Unavailable Kelly Mendez MD Unavailable Vineet Madrid MD Unavailable [phone] Avinash Chao MD Primary Care Provider Allergies [...] Description 10/04/2024 11:00 AM CDT Office Visit [facility] Cardiology at [address] [place] [address] Vineet Madrid MD Pulmonary hypertension [...] breath Abnormal stress test Palpitations Anemia Anxiety HUGHES (hard of hearing) Arthritis 2018 JANEL (obstructive [...] on file 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 Gender Identity Not on file Sexual [...] 023, 01/21/2021 Medical Devices Implanted Type Area Body Corporate Manager Device Identifier Shelf Expiration Date Model / Serial / Lot [employer] Angio-Seal Vip 6fr Closere Device [id number] - [id number] Implanted:Qty: 1 on 12/10/2021 by Manny Washington MD at [facility] [employer] 09/22/2022 [id number] / / [id number] Procedures Procedure Name Priority Date/Time Associated Diagnosis [...] blood 10/04/2024 1 1:05 AM CDT Result [facility] Vineet Madrid MD POINT OF CARE TEST ORDERA BLES Final Result * DEXA SCAN (05/19/2022) Result [facility] Historical Provider HEALTH MAINTENANCE Final Result * MAMMOGRAPHY (05/19/2022) Result [facility] Provider HEALTH MAINTENANCE Final Result * COLONOSCOPY (02/10/2022) Result [facility] Provider HEALTH MAINTENANCE Final Result * HEPATITIS C SCREENING (06/07/2018) SCRIBED HCV ab nob-reacti ve Comment:records from prior P CP 06/07/2018 Result [facility] Provider HEALTH MAINTENANCE Final Result from Last 3 Months or Most Recently Relevant to Health Maintenance Insurance [employer] MEDICARE [facility] MEDICARE ADVANTAGE [facility] MEDIC[facility] Address: [address] [address] [place] [address] [facility] MEDICARE AFFAIRS [facility] MEDICARE Address: [address] [place] [address] Advance Directives For more information, please contact: [phone] * Full Code (Latest Code Status on File) Date Activated Date Inactivated Comments 12/10/2021 11:01 AM 12/10/2021 5:15 PM Care Teams Graphics Coordinator Relationship Specialty Start Date End Date Avinash Chao MD [address] [place] [address] PCP - General Family Medicine 09/17/23 Raghav Rodriguez MD [address] [facility] [address] [place] [address] Referring Physician Gastroenterology 08/19/22 Debra Emery, PIPE OR STEAM FITTER FURNACE INSTALLER [address] [place], [place] [id number] Nurse Practitioner Nurse Practitioner 08/19/22 Kelly Mendez MD [address] [place] [address] [address] [place] [id number] Consulting Physician Sleep Medicine 08/19/22 Vineet Madrid MD [address] [place] [address] Consulting Physician Cardiology 08/19/22
--- OUTSIDE RECORDS SUMMARY | 2024-10-31 16:44 | XMS_ITS | Clinical Summary ---
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 [address] PCP - General Family Practice 05/10/12
== END 2024-10-31 16:50 | disposition home or self-care (01) ==
LOC: ANHED 16:42
PROVIDERS: Emergency Provider Emergency Medicine; PCP Family Medicine
DX: S01.01XA Laceration without foreign body of scalp, initial encounter (principal); I73.9 Peripheral vascular disease, unspecified; M85.80 Other specified disorders of bone density and structure, unspecified site; K58.0 Irritable bowel syndrome with diarrhea; Z79.85 Long-term (current) use of injectable non-insulin antidiabetic drugs; Z79.899 Other long term (current) drug therapy; W22.8XXA Striking against or struck by other objects, initial encounter
CPT/HCPCS: 12002; 99283; A9270

== ENCOUNTER 2025-01-11 07:58 | Outpatient (CLI) | payer MEDICARE, SELFPAY ==
[2025-01-11 08:34] LABS: Hematocrit 36.5 % (37.0-47.0); Hemoglobin 12.0 g/dL (12.0-15.0)
[2025-01-11 09:10] LABS: Anion Gap 8 mmol/L (4-12); Blood Urea Nitrogen 16 mg/dL (7-17); Calcium 9.4 mg/dL (8.4-10.2); Carbon Dioxide 26 mmol/L (22-30); Chloride 101 mmol/L (98-107); Estimated Glomerular Filt Rate > 60; Glucose 114 mg/dL (65-110); Potassium 4.6 mmol/L (3.4-5.0); Sodium 135 mmol/L (137-145)
== END 2025-01-11 07:59 | disposition home or self-care (01) ==
LOC: ANHSURGERY 08:03
PROVIDERS: Anesthesiology; PCP Family Medicine; Visit Provider Plastic Surgery
DX: D64.9 Anemia, unspecified (principal); E11.9 Type 2 diabetes mellitus without complications
CPT/HCPCS: 36415; 80048; 85014; 85018